=== PATIENT | female | born 1930 | race Caucasian/White ===

== ENCOUNTER → 2019-03-28 | Outpatient (CLI) | payer MEDICARE | END | disposition home or self-care (01) | LOC: CVU 11:00 | PROVIDERS: ATTEND Internal Medicine Cardiovascular Disease | DX: I65.23 Occlusion and stenosis of bilateral carotid arteries (principal); I35.0 Nonrheumatic aortic (valve) stenosis | CPT/HCPCS: 93880; 94060; 94726; 94729 ==

== ENCOUNTER → 2019-03-29 | Outpatient (CLI) | payer MEDICARE ==
[~2019-03-29] MED LIST: APIX2.5T PO; CYCL-259 PO; LEVO50TA5 PO; LEVO5DRO4 RIGHTEYE; METOPROLOL 1 MG/ML, 5ML ONE; OMEG1CAP23 PO; OXYB5TAB10 PO; PRAV40TA2 PO; PROTAMINE SULFATE 10 MG/ML, 5ML ONE; TRAZ150T62 PO; VISIPAQUE 320 MG/ML, 150ML BOTTLE ONE; VIT1CAPS42 PO; VITA1CAP PO
[2019-03-29 11:28] LABS: CHLORIDE 104 mmol/L (98-107)
[2019-03-29 11:34] LABS: ANION GAP 6 mmol/L (5-15); CALCIUM 8.7 mg/dL (8.5-10.1)
== END | disposition home or self-care (01) ==
LOC: RAD 10:48
PROVIDERS: ATTEND Internal Medicine Cardiovascular Disease
DX: M51.37 Other intervertebral disc degeneration, lumbosacral region (principal); M47.816 Spondylosis without myelopathy or radiculopathy, lumbar region; I70.8 Atherosclerosis of other arteries
CPT/HCPCS: 36415; 71275; 74174; 80048; Q9967

== ENCOUNTER → 2019-05-08 | Outpatient (CLI) | payer MEDICARE ==
[~2019-05-08] MED LIST changes: +ACETAMINOPHEN 325 MG TABLET PO PRN; +APIXABAN 2.5 MG TABLET PO SCH; +CYCLOBENZAPRINE 10 MG TABLET PO PRN; +HYDROcodone/APAP 5/325 TABLET PO PRN; +LABETALOL 20 MG/4 ML IVPush PRN; +LEVOBUNOLOL OPHTH 0.5%, 5ML RIGHTEYE SCH; +LEVOTHYROXINE 50 MCG TABLET PO SCH; -METOPROLOL 1 MG/ML, 5ML ONE; +OXYBUTYNIN CHLORIDE 5 MG TABLET PO SCH; +PRAVASTATIN 40 MG TABLET PO SCH; +PROCHLORPERAZINE 5 MG/ML, 2ML IVPush PRN; -PROTAMINE SULFATE 10 MG/ML, 5ML ONE; +TEMPLATE NON-FORMULARY MED. (Vit C/E/Zn/Coppr/Lutein/Zeaxan** (Preservision Areds 2 Softge PO SCH; +TEMPLATE NON-FORMULARY MED. (Vitamin B Complex** 1 TAB) PO SCH; +TRAZODONE 150MG TABLET PO SCH; -VISIPAQUE 320 MG/ML, 150ML BOTTLE ONE; +hydrALAzine 20 MG/ML, 1ML IVPush PRN
== END | disposition home or self-care (01) ==
LOC: CVU 11:19
PROVIDERS: ATTEND Internal Medicine Cardiovascular Disease
DX: I08.3 Combined rheumatic disorders of mitral, aortic and tricuspid valves (principal); I65.29 Occlusion and stenosis of unspecified carotid artery
CPT/HCPCS: 93306

== ENCOUNTER → 2020-04-22 | Outpatient (CLI) | payer MEDICARE ==
[~2020-04-22] MED LIST changes: -ACETAMINOPHEN 325 MG TABLET PO PRN; -APIXABAN 2.5 MG TABLET PO SCH; -CYCLOBENZAPRINE 10 MG TABLET PO PRN; -HYDROcodone/APAP 5/325 TABLET PO PRN; -LABETALOL 20 MG/4 ML IVPush PRN; -LEVOBUNOLOL OPHTH 0.5%, 5ML RIGHTEYE SCH; -LEVOTHYROXINE 50 MCG TABLET PO SCH; -OXYBUTYNIN CHLORIDE 5 MG TABLET PO SCH; -PRAVASTATIN 40 MG TABLET PO SCH; -PROCHLORPERAZINE 5 MG/ML, 2ML IVPush PRN; -TEMPLATE NON-FORMULARY MED. (Vit C/E/Zn/Coppr/Lutein/Zeaxan** (Preservision Areds 2 Softge PO SCH; -TEMPLATE NON-FORMULARY MED. (Vitamin B Complex** 1 TAB) PO SCH; -TRAZODONE 150MG TABLET PO SCH; -hydrALAzine 20 MG/ML, 1ML IVPush PRN
== END | disposition home or self-care (01) ==
LOC: CVU 10:05
PROVIDERS: ATTEND Internal Medicine Cardiovascular Disease
DX: I08.8 Other rheumatic multiple valve diseases (principal); R06.02 Shortness of breath; I65.29 Occlusion and stenosis of unspecified carotid artery
CPT/HCPCS: 93306